=== PATIENT | male | born 1930 | race Caucasian/White ===

== ENCOUNTER 2017-12-29 06:56 | Day surgery (SDC) | payer MEDICARE, OTHER ==
[2017-12-26 16:24] VITALS: BMI 22.9
[2017-12-29 07:50] LABS: #Eosinphils 0.3 thou/uL (0.0-0.7); #Lymphocytes 1.1 thou/uL (1.20-3.40); #Monocytes 0.8 thou/uL (0.11-0.59); #Neutrophils 4.1 thou/uL (1.40-6.50); %Basophils 0.7 % (0.0-1.0); %Eosinophils 4.2 % (0.0-10.0); %Lymphocytes 17.3 % (21.0-51.0); %Monocytes 12.4 % (0.0-10.0); %Neutrophils 65.5 % (42.0-75.0); Hemoglobin 13.2 g/dL (14.0-18.0); Mean Corpuscular HGB CONC 32.2 g/dL (32.0-36.0); Mean Corpuscular Hemoglobin 27.8 pg (27.0-31.0); Mean Corpuscular Volume 86.2 fL (78.0-98.0); Platelet Count 173 thou/uL (130-400); RBC Distribution Width 13.3 % (11.5-14.5); Red Blood Cell (RBC) Count 4.76 mill/uL (4.70-6.10); White Blood Cell (WBC) Count 6.3 thou/uL (4.8-10.8)
[2017-12-29 08:05] LABS: INR-International Normal Ratio 1.5; PTT 39.3 SEC (22.9-36.1); Prothrombin Time 18.6 SEC (12.0-14.7)
[2017-12-29 08:09] LABS: Anion Gap 11 mmol/L (10-20); BUN (Urea Nitrogen) 21 mg/dL (8.4-25.7); Calc. Creatinine Clearance 38 mL/min (70-130); Calcium 9.4 mg/dL (7.8-10.44); Carbon Dioxide 26 mmol/L (23-31); Chloride 107 mmol/L (98-107); Estimated GFR-MDRD 47; Glucose 120 mg/dL (83-110); Potassium 3.9 mmol/L (3.5-5.1); Sodium 140 mmol/L (136-145)
--- NOTE | 2017-12-29 10:23 | OP ---
DATE OF PROCEDURE: 12/29/2017 SURGEON: Dr. Jorge Martin PROCEDURE: Elective cardioversion. Mr. Goldberg is an 87-year-old man with history of persistent atrial fibrillation, fatigue, tiredness o n chronic anticoagulation with Eliquis 5 twice a day. He has a biventricular ICD in place and he is here for an elective cardioversion. PROCEDURE: The patient received propofol per Anesthesia specialist. The ICD was interrogated pre an d post-procedure. After adequate level of sedation achieved, a synchronized internal 35 joule shock promptly converted the patient back to sinus rhythm. CONCLUSION: Successful cardioversion. PLAN: Continue Eliquis and monitor the patient's symptoms. If symptomatic atrial fibrillation recur s, we could consider antiarrhythmic agents to suppress atrial fibrillation.
[2017-12-29] MEDS ORDERED: Lidocaine 1% PF 5 ML VIAL ONE (12:41)
[2017-12-29] MEDS ORDERED: PROPOFOL 200 MG/20 ML VIAL ONE (12:41)
--- NOTE | 2017-12-29 16:52 | EKG ---
Test Reason : PREOP CARDIOVERSION Blood Pressure : / mmHG Vent. Rate : 070 BPM Atrial Rate : 267 BPM P-R Int : 000 ms QRS Dur : 176 ms QT Int : 482 ms P-R-T Axes : 000 -41 092 degrees QTc Int : 520 ms Electronic ventricular pacemaker When compared with ECG of 20-APR-2012 04:59, No significant change was found Confirmed by ABHIJEET ONEAL, SClaudia ([id number]) on 12/29/2017 4:52:11 PM Referred By: [facility] Confirmed By:DR. Nathaly JHA MD
== END 2017-12-29 10:54 | disposition home or self-care (01) ==
LOC: CCL 06:56
PROVIDERS: ATTEND Internal Medicine Cardiovascular Disease
PROC: 5A2204Z Restoration of Cardiac Rhythm, Single (ICD-10-PCS; principal; 2017-12-29)
DX: I48.1 Persistent atrial fibrillation (principal); I11.0 Hypertensive heart disease with heart failure; I50.22 Chronic systolic (congestive) heart failure; E78.5 Hyperlipidemia, unspecified; I25.10 Atherosclerotic heart disease of native coronary artery without angina pectoris; I42.0 Dilated cardiomyopathy; Z79.01 Long term (current) use of anticoagulants; Z79.82 Long term (current) use of aspirin; Z79.899 Other long term (current) drug therapy; Z88.0 Allergy status to penicillin; Z95.810 Presence of automatic (implantable) cardiac defibrillator; Z95.1 Presence of aortocoronary bypass graft
CPT/HCPCS: 36415; 80048; 85025; 85610; 85730; 92960; 93005; 93010

== ENCOUNTER → 2018-09-25 | Day surgery (SDC) | payer MEDICARE, OTHER ==
[2018-09-24 16:03] VITALS: BMI 23.0
[~2018-09-25] MED LIST: PROPOFOL 20 ML ONE
[2018-09-25 12:39] LABS: INR-International Normal Ratio 1.5; PTT 39.4 SEC (22.9-36.1); Prothrombin Time 18.2 SEC (12.0-14.7)
--- NOTE | 2018-09-25 14:13 | PRG ---
DATE OF SERVICE: 09/25/2018 SUBJECTIVE: Mr. Amaya is here for a planned cardioversion. He seems to be doing well. No issues noted. He started his sotalol this morning. He continues with his Eliquis for anticoagulation without difficulty. He has no dizziness or loss of consciousness. No stroke-like symptoms. Rest of 12-point system otherwise unremarkable. OBJECTIVE: VITAL SIGNS: Blood pressure 153/85, heart rate 70, respirations 12, the patient is afebrile, and oxygen saturation is 100%. GENERAL: Alert and oriented man, in no apparent distress. NECK: Supple. Jugular veins not distended. CHEST: Coarse with no crackles. HEART: Heart sounds are regular to rate and rhythm. ICD insertion site is well healed. ABDOMEN: Benign. Bowel sounds positive. EXTREMITIES: Lower extremities without edema, clubbing, or cyanosis. DATABASE: EKG revealing atrial ventricular rates with paced rhythm. Interrogation of device is Medtronic Bi-V ICD with battery longevity up to 2 years. The patient has no ventricular tachyarrhythmias, currently atrially paced. Lead parameters are adequate. Bi-V pacing percentage, now improved. The atrial fibrillation counters seems to indicate termination of atrial fibrillation, the successful ATP therapy a couple of days before. Also measurements are at baseline. Reforming the atrial ATP is to make it more aggressive is performed. LABORATORY DATA: The INR 1.5, PTT 39. White cell count is 7.4, hemoglobin 10.8, platelet count is 167. Glucose 116, sodium 138, potassium 4.1, BUN is 15, and creatinine 1.5 noted. ASSESSMENT AND PLAN: Mr. Amaya is a pleasant 88-year-old man with history of systolic congestive heart failure and Bi-V ICD use, paroxysmal atrial fibrillation which has been persisting now. He was initiated on sotalol, so far tolerating his medication well. QTc is prolonged, albeit still with a very wide QRS of 170 milliseconds. For now, he seems to be tolerating this medication well and seems to be having sustained sinus rhythm. We will continue as such. No proarrhythmia is noted. Routine followup in the office will be requested in 6 weeks. Job ID: [id number]
== END ==
LOC: CCL 11:04
PROVIDERS: ATTEND Internal Medicine Cardiovascular Disease
DX: I48.1 Persistent atrial fibrillation (principal); E78.5 Hyperlipidemia, unspecified; I11.0 Hypertensive heart disease with heart failure; I50.22 Chronic systolic (congestive) heart failure; I42.0 Dilated cardiomyopathy; I25.10 Atherosclerotic heart disease of native coronary artery without angina pectoris; Z95.810 Presence of automatic (implantable) cardiac defibrillator; Z53.8 Procedure and treatment not carried out for other reasons; Z88.0 Allergy status to penicillin; Z79.82 Long term (current) use of aspirin; Z79.01 Long term (current) use of anticoagulants; Z79.899 Other long term (current) drug therapy
CPT/HCPCS: 85610; 85730; 93005; 93010; J2704

== ENCOUNTER 2018-10-13 09:30 | Day surgery (SDC) | payer MEDICARE, OTHER ==
[2018-10-06 14:46] VITALS: BMI 23.0
--- NOTE | 2018-10-13 01:53 | HP ---
HISTORY OF PRESENT ILLNESS: Mr. Daniel Amaya is an 88-year-old male, referred to me for evaluation of anemia, occult GI bleeding. The patient had been having some fatigue, tiredness, lack of energy and some dyspnea with exertion over the last 1 month . He had no chest pain . The patient was found to have anemia and had stool testing done for occult blood that came back positive. The patient gave me history of some black tarry stool approximately few weeks ago. The patient had no abdominal pain. No nausea or vomiting. He has no history of any rectal bleeding. The patient underwent EGD and colonoscopy, because of the history of melena and also anemia and occult GI bleeding. ALLERGIES: PENICILLIN. SOCIAL HISTORY: The patient does not smoke or drink alcohol. MEDICAL ILLNESS: 1. Ischemic cardiomyopathy. 2. Congestive heart failure. 3. Mitral regurgitation. 4. Chronic kidney disease. 5. Status post coronary artery bypass graft. 6. 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 7. History of irregular heart rate. PHYSICAL EXAMINATION: VITAL SIGNS: Pulse is 74 and blood pressure 110/68. HEENT: Conjunctivae clear. CARDIOVASCULAR: First and second heart sounds heard. There is systolic murmur. LUNGS: Clear to auscultation. ABDOMEN: Soft. No organomegaly. No tenderness. No masses. EXTREMITIES: Reveal no edema. CLINICAL IMPRESSION: Anemia, history of melena, positive stool guaiac. PLAN: EGD and colonoscopy. Job ID: [id number]
[2018-10-13] MEDS ORDERED: Lidocaine Viscous Sol 2% 15 ml UD Cup ONE (10:02)
--- NOTE | 2018-10-13 14:03 | OP ---
DATE OF PROCEDURE: 10/13/2018 OPERATIVE PROCEDURE: Esophagogastroduodenoscopy. PREOPERATIVE DIAGNOSES: Melena, anemia. POSTOPERATIVE DIAGNOSES: Normal esophagus, normal stomach and duodenum. There was no pathology seen to explain the patient's GI bleeding. DESCRIPTION OF PROCEDURE: The patient was placed on his left lateral position and was given sedation by Anesthesia Department. A Pentax videogastroscope under direct vision passed down the oropharynx, past the GE junction into the stomach and subsequently descending duodenum. The esophageal mucosa appeared normal. The GE junction, no pathology. Retroflexion failed to show any pathology in fundus and cardia. The gastric body, gastric antrum, no pathology. The incisura angularis and gastric antrum, no lesion. The scope advanced into the duodenal bulb, descending duodenum. No pathology. The stomach decompressed and the scope removed. DISCHARGE PLANS: This 88-year-old male came for an esophagogastroduodenoscopy with history of melena, anemia, and occult GI bleeding. The EGD was negative. Colonoscopy showed a very large polyp in the cecum, which was removed piecemeal. The procedure was very lengthy and was somewhat difficult. However, at the end of the procedure, the polypectomy site appears very healthy, did not have any bleeding. The patient can be discharged home. DISCHARGE INSTRUCTIONS: 1. liquid diet for 24 hours and had no abdominal pain. No rectal bleeding. 2. Advancing diet. 3. Come back to clinic in 2 weeks. Job ID: [id number]
[2018-10-13] MEDS ORDERED: Lidocaine 1% PF 5 ML VIAL ONE (15:08)
[2018-10-13] MEDS ORDERED: PROPOFOL 200 MG/20 ML VIAL ONE (15:08)
[2018-10-13] MEDS ORDERED: EPINEPHrine 1 MG/10 ML Abboject SYRINGE ONE (15:08)
[2018-10-13] MEDS ORDERED: ePHEDrine 50 MG/ML VIAL ONE (15:08)
--- NOTE | 2018-10-14 10:33 | OP ---
DATE OF PROCEDURE: 10/13/2018 OPERATIVE PROCEDURES: 1. Colonoscopy with polypectomy. 2. Colonoscopy with injection of 1:10,000 epinephrine 2 mL at the polypectomy site. 3. A 7-Kyr[place] BICAP therapy at polypectomy site. PREOPERATIVE DIAGNOSES: Melena, anemia, and occult gastrointestinal bleeding. POSTOPERATIVE DIAGNOSES: 1. Diffuse colonic diverticular disease. 2. Two very large sessile polyps over the cecum, one measuring approximately 3 cm and the other one was probably about about 5+ cm. DESCRIPTION OF PROCEDURE: The patient was given sedation by Anesthesia Department. The rectal exam was done. The scope was advanced into the rectum. No lesions felt on rectal exam. A Pentax videocolonoscope was introduced into the rectum and advanced all the way to the cecum. The patient had a very tortuous, redundant colon. He also had some retained stool. The patient has a diffuse colonic diverticular disease. The most severe over the sigmoid colon. The patient had two very large polyps . One was about 3 cm and very flat. This was removed with snare cautery. Postpolypectomy, the polypectomy site did not cauterize very well. A 7-[place] BICAP probe was passed through the biopsy channel and the area cauterized with good hemostasis. Another polyp was very large and probably measured the polyp at 5 to 6 cm. The polyp was very difficult to remove. It was removed piecemeal. The polyps were removed. polyp removed with Meyers net. The scope was advanced back into the cecum again. There was no active bleeding seen. A 2 mL of epinephrine injected with at the polypectomy site and also had polypectomy site as well. At the end of the procedure, the polypectomy site appears very well cauterized and no bleeding seen. The colon decompressed and the scope removed. Job ID: [id number]
== END 2018-10-13 13:26 | disposition home or self-care (01) ==
LOC: SDC 09:30
PROVIDERS: ATTEND Internal Medicine Gastroenterology
PROC: 0DJ08ZZ Inspection of Upper Intestinal Tract, Via Natural or Artificial Opening Endoscopic (ICD-10-PCS; principal; 2018-10-13)
PROC: 0DBH8ZX Excision of Cecum, Via Natural or Artificial Opening Endoscopic, Diagnostic (ICD-10-PCS; 2018-10-13)
PROC: 0DBH8ZX Excision of Cecum, Via Natural or Artificial Opening Endoscopic, Diagnostic (ICD-10-PCS; 2018-10-13)
DX: K57.31 Diverticulosis of large intestine without perforation or abscess with bleeding (principal); D64.9 Anemia, unspecified; D12.0 Benign neoplasm of cecum; I25.5 Ischemic cardiomyopathy; I50.9 Heart failure, unspecified; N18.9 Chronic kidney disease, unspecified; I34.0 Nonrheumatic mitral (valve) insufficiency; Z88.0 Allergy status to penicillin; Z95.1 Presence of aortocoronary bypass graft; Z98.890 Other specified postprocedural states; Z79.82 Long term (current) use of aspirin; Z79.899 Other long term (current) drug therapy
CPT/HCPCS: 88305; J0171; J2001; J2704; J3490

== ENCOUNTER 2020-07-06 10:32 | Outpatient (CLI) | payer MEDICARE, OTHER ==
[2020-07-06 11:24] LABS: Hemoglobin 11.6 g/dL (13.5-17.5); Mean Corpuscular HGB CONC 29.6 g/dL (32.0-36.0); Mean Corpuscular Hemoglobin 22.1 pg (27.0-33.0); Mean Corpuscular Volume 74.7 fl (81.2-95.1); Mean Platelet Volume 9.2 fl (7.4-10.4); Platelet Count 148 10x3/uL (150-450); RBC Distribution Width 16.4 % (11.5-14.5); Red Blood Cell (RBC) Count 5.25 10x6/uL (4.32-5.72); White Blood Cell (WBC) Count 5.4 10x3/uL (3.5-10.5)
[2020-07-06 11:46] LABS: INR-International Normal Ratio 1.1; PTT 30.8 sec (22.0-33.0); Prothrombin Time 12.5 sec (9.5-12.1)
[2020-07-06 12:09] LABS: Anion Gap 13 mmol/L (10-20); BUN (Urea Nitrogen) 15 mg/dL (8.4-25.7); Calc. Creatinine Clearance 0 mL/min (70-130); Calcium 9.2 mg/dL (7.8-10.44); Carbon Dioxide 31 mmol/L (23-31); Chloride 102 mmol/L (98-107); Glucose 130 mg/dL (83-110); Potassium 3.6 mmol/L (3.5-5.1); Sodium 142 mmol/L (136-145)
[2020-07-06 18:01] LABS: SARS-CoV-2 PCR by NAA Not Detected (NotDetected)
== END 2020-07-06 10:33 | disposition home or self-care (01) ==
LOC: LABBT 10:32
PROVIDERS: ATTEND Internal Medicine Cardiovascular Disease
DX: Z01.818 Encounter for other preprocedural examination (principal); I48.91 Unspecified atrial fibrillation; Z20.822 Contact with and (suspected) exposure to COVID-19
CPT/HCPCS: 80048; 85027; 85610; 85730; 93005; U0003; U0005; 87635; 93010

== ENCOUNTER 2020-07-10 10:02 | Day surgery (SDC) | payer MEDICARE, OTHER ==
[2020-07-07 12:03] VITALS: BMI 22.9
[2020-07-10] MEDS ORDERED: PROPOFOL 200 MG/20 ML VIAL ONE (12:11)
== END 2020-07-10 13:26 | disposition home or self-care (01) ==
LOC: CCL 10:02
PROVIDERS: ATTEND Internal Medicine Cardiovascular Disease
PROC: 5A2204Z Restoration of Cardiac Rhythm, Single (ICD-10-PCS; principal; 2020-07-10)
DX: I48.19 Other persistent atrial fibrillation (principal); I11.0 Hypertensive heart disease with heart failure; I50.9 Heart failure, unspecified; I25.10 Atherosclerotic heart disease of native coronary artery without angina pectoris; E78.5 Hyperlipidemia, unspecified; Z79.01 Long term (current) use of anticoagulants; Z79.899 Other long term (current) drug therapy; Z88.0 Allergy status to penicillin; Z95.1 Presence of aortocoronary bypass graft; Z95.810 Presence of automatic (implantable) cardiac defibrillator
CPT/HCPCS: 92960; J2704